=== PATIENT | male | born 1965 | race Caucasian/White ===

== ENCOUNTER 2018-04-23 11:19 | Observation (INO) | payer OTHER ==
[2018-04-23] MEDS ORDERED: NS 1,000 ML IV ONE ×2 (11:25→12:48)
[2018-04-23] MEDS ORDERED: ASPIRIN 81 MG CHEWABLE TAB PO ONE (11:49)
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
[2018-04-23] MEDS ORDERED: IOPAMIDOL (ISOVUE 370) 100 ML BTL IV ONE (12:54)
[2018-04-23] MEDS ORDERED: ONDANSETRON DISINTEGRATING 4 MG TAB PO PRN (14:57)
[2018-04-23] MEDS ORDERED: ACETAMINOPHEN 325 MG TAB PO PRN (14:57)
[2018-04-23] MEDS ORDERED: ONDANSETRON 4 MG/2 ML VIAL IVP PRN (14:57)
[2018-04-23] MEDS ORDERED: D50W 25 GM/50 ML SYR IVP PRN (14:58)
[2018-04-23 15:57] LABS: PLATELET COUNT 126 10^3/uL (150-400)
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
[2018-04-23] MEDS ORDERED: NS W/ 20 KCl/L 1,000 ML IV SCH (16:30)
[2018-04-23] MEDS: INSULIN LISPRO 100 UNIT/ML SC SCH (17:42)
[2018-04-23] MEDS ORDERED: SILDENAFIL CITRATE 20 MG TAB PO PRN (17:55)
[2018-04-23] MEDS ORDERED: OXYCODONE/APAP 5/325 TAB PO PRN (18:19)
[2018-04-23] MEDS ORDERED: oxyCODONE IR 5 MG TAB PO PRN (18:20)
[2018-04-23] MEDS ORDERED: ZOLPIDEM TARTRATE 5 MG TAB PO PRN (18:44)
[2018-04-23] MEDS: GABAPENTIN 400 MG CAP PO SCH (21:01)
[2018-04-23] MEDS: ACYCLOVIR 200 MG CAP PO SCH (21:03)
[2018-04-23] MEDS: SUCRALFATE 1 GM TAB PO SCH (21:03)
[2018-04-24 03:38] LABS: PLATELET COUNT 130 10^3/uL (150-400)
[2018-04-24] MEDS ORDERED: Empagliflozin [Jardiance] 25 MG PO SCH (09:00)
[2018-04-24] MEDS ORDERED: ASPIRIN EC 81 MG TAB PO SCH (09:00)
[2018-04-24] MEDS ORDERED: Dexlansoprazole [Dexilant] 60 MG PO SCH (09:00)
[2018-04-24] MEDS ORDERED: PIOGLITAZONE HCL 15 MG TAB PO SCH (09:00)
[2018-04-24] MEDS: INSULIN LISPRO 100 UNIT/ML SC SCH (10:01)
[2018-04-24] MEDS: GABAPENTIN 400 MG CAP PO SCH (10:02)
[2018-04-24] MEDS: ACYCLOVIR 200 MG CAP PO SCH (10:02)
[2018-04-24] MEDS: SUCRALFATE 1 GM TAB PO SCH (10:02)
--- NOTE | 2018-04-24 12:37 | ECHO ---
[email or web address] [address] [address] Main: [phone] Fax: Transthoracic Echocardiogram Name: BALJINDER STRANGE MR#: [id number] Study Date: 04/24/2018 Study Time: 08:07 AM Date of : 1965 Age: 52 year(s) Height: 190.5 cm (75 in.) Weight: 117.03 kg (258 lb.) BSA: 2.45 m2 Gender: Male Examination: Echo Indication: Cardiac: syncope Image Quality: Contrast: Requested by: Sammy Jeter BP: 118 mmHg/75 mmHg Heart Rate: Rhythm: Normal sinus rhythm Indication: Cardiac: syncope Procedure Staff Genetic Counselor: Bakari Win RDCS Reading Physician: Tani Still MD Requesting Provider: Conclusions: Normal size left ventricle. No LV hypertrophy. Normal global systolic LV function. EF is 68 %. Normal diastolic LV function. Normal RV function. The left atrium is normal in size. The right atrium is normal in size. The mitral valve is normal in appearance and function. The aortic valve is normal in appearance and function. The tricuspid valve is normal in appearance and function. The pulmonic valve is normal in appearance and function. No pericardial effusion. Measurements: Chambers Valvular Assessment AV/MV Valvular Assessment TV/PV Normal Normal Normal Name Value Range Name Value Range Name Value Range Ao Radha (MM): 3.3 cm (2.2 cm-3.7 AV Vmax: 1.33 m/s (1 m/s-1.7 PV Vmax: 0.98 m/s (0.6 m/s-0.9 cm) m/s) m/s) IVSd (2D): 0.8 cm (0.6 cm-1.1 AV maxP mmHg ( - ) PV PGmax: 4 mmHg ( - ) cm) LVOT Vmax: 0.85 m/s (0.7 m/s-1.1 LVDd (2D): 4.8 cm (4.2 cm-5.9 m/s) cm) MV E Vmax: 0.85 m/s ( - ) LVDs (2D): 3.0 cm (2.1 cm-4 MV A Vmax: 0.73 m/s ( - ) cm) MV E/A: 1.16 ( - ) LVPWd (2D): 1.1 cm (0.6 cm-1 cm) LVEF (2D): 68 (>=54 %) Patient: BALJINDER STRANGE Study Date: 04/24/2018 Page 1 of 2 08:07 AM Continued Measurements: Chambers Valvular Assessment AV/MV Name Value Name Value LADs Lon.0 cm MV E' Septal: 0.08 m/s LA Area: 22.4 cm2 MV E/E' Septal: 10.50 LA Volume: 71 ml MV E/E' Lateral: 8.60 LA Volume Index: 29.0 ml/m2 Findings: Left Ventricle: Normal size left ventricle. No LV hypertrophy. Normal global systolic LV function. EF is 68 %. No regional wall motion abnormality. Normal diastolic LV function. Right Ventricle: Normal size right ventricle. Normal RV function. Left Atrium: The left atrium is normal in size. Right Atrium: The right atrium is normal in size. Mitral Valve: The mitral valve is normal in appearance and function. There is no mitral valve regurgitation. No mitral stenosis is present. Aortic Valve: The aortic valve is normal in appearance and function. The aortic valve is tri-leaflet. There is no aortic valve regurgitation. No aortic valve stenosis is present. Tricuspid Valve: The tricuspid valve is normal in appearance and function. There is no tricuspid valve regurgitation. Pulmonic Valve: The pulmonic valve is normal in appearance and function. There is no pulmonic regurgitation seen. Aorta: The aorta is normal. IVC: The IVC is normal sized. Pericardium: No pericardial effusion. No pleural effusion. (No Signature Object) Patient: BALJINDER STRANGE Study Date: 04/24/2018 Page 2 of 2 08:07 AM [id number]
--- NOTE | 2018-04-24 12:48 | CPR ---
PROCEDURE PERFORMED: Exercise treadmill test. INDICATION FOR PROCEDURE: Syncopal event. PRE: After obtaining informed consent, the patient was placed on electrocardiogram. Initial EKG karlene ws sinus rhythm , normal axis, no significant ST or T-wave abnormalities. Patient denies any chest p ain or pressure symptoms suggesting of ischemia. Initial blood pressure of 102/76. STRESS: The patient was placed on exercise treadmill, following standard Jake protocol with the edie day findings. 1. Patient exercised for 6 minutes and 30 seconds. 2. 7.7 METS. 3. Patient obtained a heart rate of 150 BPM which was 89% of MPHR. 4. Patient had no ST shift at peak exercise suggesting of ischemia. 5. Patient had no chest pain or symptoms suggesting of ischemia during stress. 6. No arrhythmias noted throughout stress. 7. BP response 102/76 at rest, peak 146/60. 8. SpO2 greater than 90% throughout testing. 9. Testing was stopped due to maximum effort. 10. Wren treadmill score of 6, placing the patient at low cardiovascular risk. RECOVERY: The patient recovered for 5 minutes with heart rate returning back to baseline and blood p ressure back to baseline. He remained asymptomatic. No arrhythmias during recovery. IMPRESSION: A 52-year-old male with history of recent syncopal event, undergoing exercise treadmill testing, no arrhythmias noted during testing, no significant ST shifts at peak exercise suggesting of ischemia, Wren treadmill score of 6, placing him at low cardiovascular risk. Study results were dis cussed with hospitalist services. /[id number]/MODL
[2018-04-24 12:53] VITALS: BP 139/83
--- NOTE | 2018-04-24 13:25 | ASMTCMCOM ---
CM Note CM Note Notes: CM reviewed pt's chart for d/c planning. Pt is a 52 y/o male, visiting from [place]. Pt had a syncopal episode following a week of feeling poorly. He is being evaluated. When at home pt lives independently and is employed. He lives with his . No CM needs anticipated; CM will follow for changes. D/C Plan: Anticipate independent. Date Signed: 04/24/2018 01:24 PM Electronically Signed By:Carola Toure
--- NOTE | 2018-04-24 14:13 | PDDCSUM ---
Discharge Summary Discharge Summary: Date of Admission: 04/23/2018 Date of Discharge: 04/24/2018 Consults: N/A Procedures: TTE, Treadmill Stress Test Followup: PCP Hospital Course Problem List: #Syncope - Patient had episode of syncope while at Chiropractor's, likely vasovagal vs. carotid hypersensitivity - TTE performed during admission which is WNL with EF 65% - Treadmill stress test also performed during admission with no signs of ischemia - No events on telemetry overnight, discussed with patient about possibility of long-term monitoring in the future if symptoms recur #BRITTANI - Baseline creatinine unknown, 1.2 at time of discharge #NIDDM #Cough, Rhinorrhea, malaise Time spent on discharge was >35 minutes with >50% of time spent on patient education and counseling.
--- NOTE | 2018-04-24 15:20 | CPEKG ---
Test Reason : OPEN Blood Pressure : / mmHG Vent. Rate : 088 BPM Atrial Rate : 088 BPM P-R Int : 169 ms QRS Dur : 099 ms QT Int : 357 ms P-R-T Axes : -01 -41 040 degrees QTc Int : 432 ms Sinus rhythm Abnormal R-wave progression, early transition Inferior infarct, old Confirmed by Navid Moreno ([id number]) on 04/24/2018 3:20:09 PM Referred By: Confirmed By:Navid Moreno
== END 2018-04-24 15:18 | disposition home or self-care (01) ==
LOC: CED 11:19 → CEDHOLD 12:46 → INTOOBSV 12:46 → F2W 15:10
PROVIDERS: ADMIT Hospitalist; ATTEND Internal Medicine
DX: R55 Syncope and collapse (principal); E86.9 Volume depletion, unspecified; N17.9 Acute kidney failure, unspecified; R94.31 Abnormal electrocardiogram [ECG] [EKG]; E11.9 Type 2 diabetes mellitus without complications; R05 Cough; R53.81 Other malaise; M25.512 Pain in left shoulder; I10 Essential (primary) hypertension; Z79.84 Long term (current) use of oral hypoglycemic drugs; Z87.891 Personal history of nicotine dependence
CPT/HCPCS: 71045; 71275; 93005; 93017; 93306; 93880; 96360; 99285; G0378; 80048-PO; 84484-ER; Q9967